=== PATIENT | male | born 1960 | race Caucasian/White ===

== ENCOUNTER → 2016-12-20 | Outpatient (CLI) | payer OTHER ==
[~2016-12-20] MED LIST: LO-DOSE ASPIRIN81 M1 PO; PRILOSEC20 MG PO; ZESTRIL20 MG PO
== END | disposition home or self-care (01) ==
LOC: CDC 09:10
DX: Z01.810 Encounter for preprocedural cardiovascular examination (principal); K40.91 Unilateral inguinal hernia, without obstruction or gangrene, recurrent; J98.4 Other disorders of lung; R94.31 Abnormal electrocardiogram [ECG] [EKG]
CPT/HCPCS: 93000

== ENCOUNTER 2016-12-28 05:46 | Day surgery (SDC) | payer OTHER ==
[~2016-12-28] VITALS: Ht 177.8 cm; Wt 104.3 kg
[2016-12-28 06:56] VITALS: BP 130/82
[2016-12-28] MEDS ORDERED: PERCOCET 5/31 TABLET PO (10:36)
[2016-12-28] MEDS ORDERED: COLACE100 MG PO (10:36)
[2016-12-28 11:38] VITALS: BP 135/86
[2016-12-28 12:43] VITALS: BP 115/59
== END 2016-12-28 13:15 | disposition home or self-care (01) ==
LOC: SDC 05:46
PROC: 0YUA4JZ Supplement Bilateral Inguinal Region with Synthetic Substitute, Percutaneous Endoscopic Approach (ICD-10-PCS; principal; 2016-12-28)
DX: K40.20 Bilateral inguinal hernia, without obstruction or gangrene, not specified as recurrent (principal); D17.6 Benign lipomatous neoplasm of spermatic cord; I10 Essential (primary) hypertension; E78.5 Hyperlipidemia, unspecified; K21.9 Gastro-esophageal reflux disease without esophagitis; R94.31 Abnormal electrocardiogram [ECG] [EKG]; E66.3 Overweight; Z68.32 Body mass index [BMI] 32.0-32.9, adult; Z79.82 Long term (current) use of aspirin
CPT/HCPCS: C1727; C1781; J0131; J0330; J0690; J1100; J1170; J2250; J2405; J2710; J3010